=== PATIENT | male | born 1975 | race Caucasian/White ===

== ENCOUNTER 2017-01-08 18:40 | Emergency (ER) | payer OTHER ==
[2017-01-08] MEDS ORDERED: Cyclopentolate 1% OPTH.SOL* 2 ML BTL LEFT EYE ONE (19:44)
--- NOTE | 2017-01-08 19:47 | ED ---
Throat Pain/Nasal Congestion - HPI Summary HPI Summary: 42M presents with metal in left eye. He states he was sanding and a piece of metal got into his eye. He has a history of getting metal into his eye. He admits to photophobia, pain, blurry vision. He denies any diplopia. He believes his tetanus is up to date. He does have an opthalmologist who he tried to call to see but they were closed. He does not wear contacts or glasses. He did not attempt to remove the object. He feels like it is at the center of his eye. - History of Current Complaint Chief Complaint: EDEyeProblem Time Seen by Provider: 01/08/17 19:00 - Allergies/Home Medications Allergies/Adverse Reactions: Allergies Allergy/AdvReac Type Severity Reaction Status Date / Time No Known Allergies Allergy Verified 01/08/17 18:56 PMH/Surg Hx/FS Hx/Imm Hx Endocrine/Hematology History: Denies: Hx Anticoagulant Therapy Cardiovascular History: Reports: Hx Hypertension Sensory History: Denies: Hx Contacts or Glasses Opthamlomology History: Denies: Hx Contacts or Glasses Infectious Disease History: Yes Infectious Disease History: Denies: Traveled Outside the [place] in Last 30 Days - Family History Known Family History: Positive: Cardiac Disease - Social History Alcohol Use: Rare Substance Use Type: Reports: None Smoking Status (MU): Never Smoked Tobacco Review of Systems Negative: Fever Positive: Other - foreign body in left eye Negative: Chest Pain Negative: Shortness Of Breath All Other Systems Reviewed And Are Negative: Yes Physical Exam Triage Information Reviewed: Yes Vital Signs On Initial Exam: Initial Vitals Temp Pulse Resp BP Pulse Ox 98.8 F 81 16 136/72 97 01/08/17 18:57 01/08/17 18:57 01/08/17 18:57 01/08/17 18:57 01/08/17 18:57 Vital Signs Reviewed: Yes Appearance: Positive: Well-Appearing Skin: Positive: Warm, Dry Head/Face: Positive: Normal Head/Face Inspection Eyes: Positive: Normal, EOMI, STEPHANIE, Other: - no foreign body seen ENT: Positive: Normal ENT inspection, Pharynx normal, TMs normal Respiratory/Lung Sounds: Positive: Clear to Auscultation, Breath Sounds Present Cardiovascular: Positive: Normal, RRR Procedures - Eye Procedure Alcaine Drops Administered: Yes - corneal abrasion center of cornea that goes down to 6 position in 3mm Diagnostics - Vital Signs Vital Signs Temp Pulse Resp BP Pulse Ox 01/08/17 19:06 98.2 F 78 18 136/66 98 01/08/17 18:57 98.8 F 81 16 136/72 97 - Laboratory Lab Statement: Any lab studies that have been ordered have been reviewed, and results considered in the medical decision making process. EENT Course/Dx - Course Course Of Treatment: 42M presents with metal in left eye. He states he was sanding and a piece of metal got into his eye. He has a history of getting metal into his eye. He admits to photophobia, pain, blurry vision. He denies any diplopia. He believes his tetanus is up to date. He does have an opthalmologist who he tried to call to see but they were closed. He does not wear contacts or glasses. He did not attempt to remove the object. on exam no foreign body seen. has area of uptake in center of cornea with 3mm scratch down eye, used q tip to try and remove foreign body but no foreign body was able to be removed. told to follow up with optho and placed on polytrim. patient understands and agrees with plan - Differential Diagnoses Differential Diagnoses: Conjunctivitis, Corneal Abrasion, Foreign Body - Diagnoses Provider Diagnoses: Corneal abrasion, left Discharge - Discharge Plan Condition: Good Disposition: HOME Patient Education Materials: Corneal Abrasion (ED) Referrals: Pee Lisa MD [Primary Care Provider] - Additional Instructions: Place 1 drop in eye 4 times a day for 5 days Use artificial tears or saline to rinse eye for symptomatic relief Take Tylenol or ibuprofen for pain Wear safety glasses when using machinery Follow up with ophthalmology Return to ED if develop any new or worsening symptoms
[2017-01-08] MEDS ORDERED: Polymyx/Trimethoprim OPTH* 10 ML BTL LEFT EYE ONE (20:00)
[2017-01-08 20:03] VITALS: BP 126/71
== END 2017-01-08 19:57 | disposition home or self-care (01) ==
LOC: ED 18:40
DX: S05.02XA Injury of conjunctiva and corneal abrasion without foreign body, left eye, initial encounter (principal); T15.92XA Foreign body on external eye, part unspecified, left eye, initial encounter; X58.XXXA Exposure to other specified factors, initial encounter; Y93.9 Activity, unspecified; Y92.9 Unspecified place or not applicable
CPT/HCPCS: 99282; A9270-GY

== ENCOUNTER 2017-04-08 09:31 | Emergency (ER) | payer OTHER ==
[2017-04-08 09:40] VITALS: BP 132/77
[2017-04-08] MEDS ORDERED: Ketorolac INJ* 30 MG/ML 1 ML VIAL IV PUSH ONE (09:54)
--- NOTE | 2017-04-08 10:34 | RAD ---
Indication: LEFT shoulder pain since lifting injury yesterday. Comparison: March 21, 2015 CT thorax with partial inclusion of the LEFT shoulder. Technique: Internal rotation AP, external rotation Grashey, scapular Y, axillary views LEFT shoulder AP and lateral views LEFT scapula. Report: Normal acromioclavicular and glenohumeral joint alignment. Negative for fracture about the LEFT shoulder or scapula. No significant arthropathic change evident at the acromioclavicular or glenohumeral joints. Negative for stigmata of calcific tendinopathy. Unremarkable soft tissue contours. IMPRESSION: Negative radiographic exam of the LEFT shoulder and scapula.
--- NOTE | 2017-04-09 18:51 | ED ---
Kimo Ford Thomas, scribed for Shane Bell MD on 04/08/17 at 0953 . Upper Extremity Pain - HPI Summary HPI Summary: The pt is a 42 y/o M presenting to the ED c/o L shoulder pain that began yesterday s/p heavy lifting. The pain is rated 7/10. The pain is aggravated by movement of his shoulder and is alleviated by nothing. The pain is constant. 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 Pt denies neck pain or any other complaints at this time. He has a Hx of shoulder dislocation. He is accompanied by a female. - History of Current Complaint Chief Complaint: EDShouldLyudmilaj Stated Complaint: LT SHOULDER/PAIN/CANT MOVE Time Seen by Provider: 04/08/17 09:44 Hx Obtained From: Patient, Family/Medical Office Worker - accompanied by a female Mechanism Of Injury: Other - heavy lifting Onset/Duration: Started Hours Ago - onset of pain yesterday, Still Present Timing: Constant Pain Location: Shoulder - L Aggravating Factor(s): Movement Alleviating Factor(s): Nothing Associated Signs & Symptoms: Negative: Neck Pain - Allergies/Home Medications Allergies/Adverse Reactions: Allergies Allergy/AdvReac Type Severity Reaction Status Date / Time No Known Allergies Allergy Verified 01/08/17 18:56 PMH/Surg Hx/FS Hx/Imm Hx Previously Healthy: No Endocrine/Hematology History: Denies: Hx Anticoagulant Therapy Cardiovascular History: Reports: Hx Hypertension Sensory History: Denies: Hx Contacts or Glasses Opthamlomology History: Denies: Hx Contacts or Glasses - Immunization History Date of Tetanus Vaccine: None. Immunizations Up to Date: Yes Infectious Disease History: No Infectious Disease History: Denies: Traveled Outside the [place] in Last 30 Days - Family History Known Family History: Positive: Cardiac Disease - Social History Alcohol Use: Rare Substance Use Type: Reports: None Smoking Status (MU): Never Smoked Tobacco Review of Systems Negative: Fever Positive: Other - L shoulder pain; NEGATIVE: neck pain All Other Systems Reviewed And Are Negative: Yes Physical Exam - Summary Physical Exam Summary: VITAL SIGNS: Reviewed. GENERAL: Patient is a well-developed and nourished male who is lying comfortable in the stretcher. Patient is not in any acute respiratory distress. HEAD AND FACE: No signs of trauma. No ecchymosis, hematomas or skull depressions. No sinus tenderness. EYES: PERRLA, EOMI x 2, No injected conjunctiva, no nystagmus. EARS: Hearing grossly intact. Ear canals and tympanic membranes are within normal limits. MOUTH: Oropharynx within normal limits. NECK: Supple, trachea is midline, no adenopathy, no JVD, no carotid bruit, no c- spine tenderness, neck with full ROM. CHEST: Symmetric, no tenderness at palpation LUNGS: Clear to auscultation bilaterally. No wheezing or crackles. CVS: Regular rate and rhythm, S1 and S2 present, no murmurs or gallops appreciated. ABDOMEN: Soft, non-tender. No signs of distention. No rebound no guarding, and no masses palpated. Bowel sounds are normal. EXTREMITIES: There is decreased range of motion in the left shoulder. There is no deformity, ecchymosis, or hematoma. He has abduction to 90 degrees. There is some tenderness in the upper back, especially to the left side. Otherwise, FROM in all other major joints, no edema, no cyanosis or clubbing. NEURO: Alert and oriented x 3. No acute neurological deficits. Speech is normal and follows commands. SKIN: Dry and warm Triage Information Reviewed: Yes Vital Signs On Initial Exam: Initial Vitals Temp Pulse Resp BP Pulse Ox 97.8 F 62 20 132/77 97 04/08/17 09:36 04/08/17 09:36 04/08/17 09:36 04/08/17 09:36 04/08/17 09:36 Vital Signs Reviewed: Yes - [place] Coma Scale Coma Scale Total: 15 Diagnostics - Vital Signs Vital Signs Temp Pulse Resp BP Pulse Ox 04/08/17 09:36 97.8 F 62 20 132/77 97 - Laboratory Lab Statement: Any lab studies that have been ordered have been reviewed, and results considered in the medical decision making process. - Radiology Shoulder XR Xray Interpretation: No Acute Changes - Negative radiographic exam of the LEFT shoulder and scapula. ED physician has reviewed this report and agrees. Radiology Interpretation Completed By: Radiologist Scapula XR Xray Interpretation: No Acute Changes - Negative radiographic exam of the LEFT shoulder and scapula. ED physician has reviewed this report and agrees. Radiology Interpretation Completed By: Radiologist Course/Dx - Course Assessment/Plan: The pt is a 42 y/o M presenting to the ED c/o L shoulder pain that began yesterday s/p heavy lifting. The pain is rated 7/10. The pain is aggravated by movement of his shoulder and is alleviated by nothing. The pain is constant. 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 Pt denies neck pain or any other complaints at this time. He has a Hx of shoulder dislocation. He is accompanied by a female. X-rays of the shoulder and scapula show negative radiographic exam of the LEFT shoulder and scapula. There is no fracture or dislocation. I believe the symptoms are secondary to rotator cuff injury. Therefore, the patient was placed in a shoulder immobilizer and he will be discharged home with follow up by orthopedics. - Diagnoses Provider Diagnoses: Rotator cuff injury, Shoulder pain Discharge - Discharge Plan Condition: Stable Disposition: HOME Prescriptions: Naproxen TAB* [Naprosyn 250 mg TAB*] 500 mg PO Q8H PRN #30 tab PRN Reason: Pain Patient Education Materials: Rotator Cuff Injury (ED), Shoulder Pain (ED) Referrals: Pee Lisa MD [Primary Care Provider] - If Needed Lalo Wells MD [Medical Doctor] - 3 Days Additional Instructions: Follow up with Dr. Wells, orthopedics, in 3 days. Return to the emergency department for any new or worsening symptoms. The documentation as recorded by the Kimo mtz Thomas accurately reflects the service I personally performed and the decisions made by , Shane Bell MD.
== END 2017-04-08 11:28 | disposition home or self-care (01) ==
LOC: ED 09:31
DX: S46.002A Unspecified injury of muscle(s) and tendon(s) of the rotator cuff of left shoulder, initial encounter (principal); M25.512 Pain in left shoulder; X58.XXXA Exposure to other specified factors, initial encounter; Y93.9 Activity, unspecified; Y92.9 Unspecified place or not applicable
CPT/HCPCS: 96374; 99282; J1885

== ENCOUNTER 2017-11-25 19:18 | Emergency (ER) | payer OTHER ==
[2017-11-25 19:29] VITALS: BP 138/95
[2017-11-25] MEDS ORDERED: Fluorescein Sod TOPICAL 0.6* 0.6 MG TEST OPHTHALMIC ONE (20:03)
[2017-11-25] MEDS ORDERED: Proparacaine 0.5% OPHTH.SOL* 15 ML BTL RIGHT EYE ONE (20:03)
[2017-11-25] MEDS ORDERED: Eye Irrigation Solution 30 ML BOTTLE BOTH EYES ONE (20:03)
--- NOTE | 2017-11-25 20:34 | ED ---
Throat Pain/Nasal Congestion - HPI Summary HPI Summary: Complains of sensation of foreign body in right eye, and pain from working underneath car today. Denies change in vision, BENJAMIN, fever, N/V, loss of function of eye. Denies contact lens use - History of Current Complaint Chief Complaint: EDEyeProblem Time Seen by Provider: 11/25/17 20:01 Hx Obtained From: Patient, Family/Seed Core Operator Onset/Duration: Lasting Hours Severity: Moderate Associated Signs And Symptoms: Positive: FB Sensation - Allergies/Home Medications Allergies/Adverse Reactions: Allergies Allergy/AdvReac Type Severity Reaction Status Date / Time No Known Allergies Allergy Verified 11/25/17 19:29 PMH/Surg Hx/FS Hx/Imm Hx Endocrine/Hematology History: Denies: Hx Anticoagulant Therapy, Hx Diabetes Cardiovascular History: Reports: Hx Hypertension Denies: Hx Pacemaker/ICD History: Denies: Hx Renal Disease Sensory History: Denies: Hx Contacts or Glasses, Hx Hearing Aid Opthamlomology History: Denies: Hx Contacts or Glasses Psychiatric History: Denies: Hx Panic Disorder - Immunization History Date of Tetanus Vaccine: None. Infectious Disease History: No Infectious Disease History: Denies: Traveled Outside the [place] in Last 30 Days - Family History Known Family History: Positive: Cardiac Disease - Social History Alcohol Use: Rare Substance Use Type: Reports: None Smoking Status (MU): Never Smoked Tobacco Review of Systems Constitutional: Negative Positive: Other ENT: Negative Cardiovascular: Negative Respiratory: Negative Gastrointestinal: Negative Musculoskeletal: Negative Skin: Negative Neurological: Negative Psychological: Normal All Other Systems Reviewed And Are Negative: Yes Physical Exam - Summary Physical Exam Summary: Suzao lamp exam: no corneal abrasion or ulcer identified. Positive foreign body in right upper quadrant removed. Patient states he no longer has sensation of foreign body under right upper eyelid. EOMs intact. STEPHANIE Triage Information Reviewed: Yes Vital Signs On Initial Exam: Initial Vitals Temp Pulse Resp BP Pulse Ox 98.6 F 84 18 138/95 96 11/25/17 19:26 11/25/17 19:26 11/25/17 19:26 11/25/17 19:26 11/25/17 19:26 Vital Signs Reviewed: Yes Appearance: Positive: Well-Appearing Skin: Positive: Warm Head/Face: Positive: Normal Head/Face Inspection Eyes: Positive: Normal, EOMI, STEPHANIE, Conjunctiva Inflammed. Negative: Discharge Neck: Positive: Supple Respiratory/Lung Sounds: Positive: Clear to Auscultation Cardiovascular: Positive: Normal Abdomen Description: Positive: Nontender Musculoskeletal: Positive: Normal Neurological: Positive: Normal Psychiatric: Positive: Normal AVPU Assessment: Alert - [place] Coma Scale Best Eye Response: 4 - Spontaneous Best Motor Response: 6 - Obeys Commands Best Verbal Response: 5 - Oriented Coma Scale Total: 15 Procedures - Eye Procedure Right Alcaine Drops Administered: Yes Eye FB Removal: removal w/ cotton swab Antibiotic Ointment/Drps Admin: right eye Diagnostics - Vital Signs Vital Signs Temp Pulse Resp BP Pulse Ox 11/25/17 19:26 98.6 F 84 18 138/95 96 - Laboratory Lab Statement: Any lab studies that have been ordered have been reviewed, and results considered in the medical decision making process. EENT Course/Dx - Diagnoses Provider Diagnoses: Foreign body of eyelid, right Discharge - Sign-Out/Discharge Documenting (check all that apply): Discharge/Admit/Transfer - Discharge Plan Condition: Stable Disposition: HOME Patient Education Materials: Eye Foreign Body (ED) Referrals: Pee Lisa MD [Primary Care Provider] - Mario Fernandez MD [Medical Doctor] - Additional Instructions: 2 drops of antibiotic solution in right eye every 4 hours for 5 days. Follow- up with ophthalmology Dr. 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 Return to the ED for any new or worsening symptoms - Billing Disposition and Condition Condition: STABLE Disposition: Home
[2017-11-25] MEDS ORDERED: Gentamicin 0.3% OPHTH.SOLN* 5 ML BTL RIGHT EYE SCH (21:00)
== END 2017-11-25 20:54 | disposition home or self-care (01) ==
LOC: ED 19:18
DX: S00.251A Superficial foreign body of right eyelid and periocular area, initial encounter (principal); X58.XXXA Exposure to other specified factors, initial encounter; Y92.9 Unspecified place or not applicable; Z79.01 Long term (current) use of anticoagulants
CPT/HCPCS: 99282; A9270-GY